=== PATIENT | female | born 1955 | race Caucasian/White ===

== ENCOUNTER 2018-10-09 11:46 | Emergency (ER) | payer BC ==
[2018-10-09 12:51] VITALS: BP 174/86
--- NOTE | 2018-10-09 14:13 | UC ---
Complaint Female HPI - HPI Summary HPI Summary: PATIENT HAS HAD AT LEAST 1 MONTH OF URINARY FREQUENCY AND BLADDER PRESSURE OCCURRING DAILY. SHE DENIES ANY ACTUAL DYSURIA. NO FEVER, NAUSEA, BACK PAIN. HAS BEEN TRYING TO TREAT IT WITH HYDRATION AND CRANBERRY WITH NO EFFECT. - History Of Current Complaint Chief Complaint: [facility] Stated Complaint: URINARY Time Seen by Provider: 10/09/18 13:11 Hx Obtained From: Patient Onset/Duration: Gradual Onset, Lasting Weeks, Still Present Timing: Constant Severity Initially: Moderate Severity Currently: Moderate Pain Intensity: 0 Pain Scale Used: 0-10 Numeric Aggravating Factor(s): Nothing Alleviating Factor(s): Nothing Associated Signs And Symptoms: Negative: Fever, Back Pain, Vaginal Discharge, Nausea - Allergies/Home Medications Allergies/Adverse Reactions: Allergies Allergy/AdvReac Type Severity Reaction Status Date / Time No Known Allergies Allergy Verified 10/09/18 12:47 PMH/Surg Hx/FS Hx/Imm Hx Previously Healthy: Yes - Surgical History Surgical History: Yes Surgery Procedure, Year, and Place: tubal. corneal transplant - Social History Alcohol Use: Rare Substance Use Type: None Smoking Status (MU): Former Smoker Review of Systems All Other Systems Reviewed And Are Negative: Yes Constitutional: Positive: Negative Skin: Positive: Negative Respiratory: Positive: Negative Cardiovascular: Positive: Negative Gastrointestinal: Positive: Negative Genitourinary: Positive: Frequency, Other - BLADDER PRESSURE. Negative: Dysuria Physical Exam Triage Information Reviewed: Yes Appearance: Well-Appearing, No Pain Distress, Well-Nourished Vital Signs: Initial Vital Signs Temp 98.2 F 10/09/18 12:46 Pulse 97 10/09/18 12:46 Resp 16 10/09/18 12:46 BP 174/86 10/09/18 12:46 Pulse Ox 97 10/09/18 12:46 Laboratory Tests 10/09/18 13:01 POC Urine Color Yellow POC Urine Clarity Clear POC Urine pH 6.0 POC Ur Specif [place] 1.015 POC Urine Protein Negative POC Ur Glucose (UA) Negative POC Urine Ketones Negative POC Urine Blood 2+ A POC Urine Nitrite Negative POC Urine Bilirubin Negative POC Urine Urobilinogen 0.2 POC U Leukocyte Esteras Negative Vital Signs Reviewed: Yes Eyes: Positive: Conjunctiva Clear ENT: Positive: Hearing grossly normal Neck: Positive: Supple Respiratory Exam: Normal Cardiovascular Exam: Normal Abdomen Description: Positive: Nontender, Soft. Negative: CVA Tenderness (R), CVA Tenderness (L), Distended, Guarding Bowel Sounds: Positive: Present Musculoskeletal: Positive: No Edema Neurological: Positive: Alert Psychological: Positive: Age Appropriate Behavior Skin: Negative: Rashes Diagnostics - Radiology CT ABD/PELVIS W/O CONTRAST Radiology Interpretation Completed By: Radiologist Summary of Radiographic Findings: 1. DISTAL RIGHT URETERAL STONE WITHOUT SIGNIFICANT HYDRONEPHROSIS. 2. ATHEROSCLEROSIS. Complaint Female Dx - Course Course Of Treatment: PATIENT WITH A KIDNEY STONE ON CT SCAN TODAY. THIS LIKELY EXPLAINS HER SYMPTOMS HOWEVER STRONGLY RECOMMENDED PATIENT FOLLOW-UP WITH UROLOGY FOR FURTHER EVALUATION NOT ONLY FOR STONE BUT FOR ANY OTHER POSSIBLE UNDERLYING CONDITION. PATIENT STATES SHE WILL CALL UROLOGY FOR AN APPOINTMENT. URINE CULTURE SENT. FLOMAX GIVEN TO HELP PASS THE STONE. STRAINER PROVIDED FOR PATIENT TO CATCH THE STONE. UROLOGY CONTACT INFORMATION PROVIDED. - Differential Dx/Diagnosis Provider Diagnosis: Nephrolithiasis Discharge - Sign-Out/Discharge Documenting (check all that apply): Patient Departure All imaging exams completed and their final reports reviewed: Yes - Discharge Plan Condition: Stable Disposition: HOME Prescriptions: Tamsulosin CAP* [Flomax CAP*] 0.4 mg PO DAILY #7 cap Patient Education Materials: Kidney Stones (ED) Referrals: Mita Navarrete NP [Primary Care Provider] - If Needed Additional Instructions: YOU HAVE A 4 MM KIDNEY STONE SEEN ON CT SCAN TODAY. THIS LIKELY EXPLAINS THE BLOOD FOUND IN YOUR URINE HOWEVER I WOULD RECOMMEND YOU CALL UROLOGY FOR A FOLLOW-UP APPOINTMENT TO EVALUATE FOR ANY OTHER POSSIBLE UNDERLYING CONDITION. TAKE THE FLOMAX DAILY FOR 7 DAYS AND BE SURE TO STAY WELL HYDRATED. STRAIN YOUR URINE TO SEE IF YOU CAN CATCH THE STONE. IF YOU CATCH IT BRING IT TO YOUR UROLOGY APPOINTMENT FOR ANALYSIS. WE HAVE SENT YOUR URINE FOR CULTURE AND WILL CALL YOU IF ANY FURTHER TREATMENT IS INDICATED. GO TO THE ER WITHOUT FAIL IF YOU DEVELOP WORSENING PAIN, FEVER, NAUSEA, INABILITY TO URINATE OR GUZMAN BLOOD IN THE URINE. - Billing Disposition and Condition Condition: STABLE Disposition: Home
== END 2018-10-09 14:55 | disposition home or self-care (01) ==
LOC: UCCORT 11:46
DX: N20.0 Calculus of kidney (principal); Z87.891 Personal history of nicotine dependence
CPT/HCPCS: 74176; 81003; 87086; 99212; G0463